=== PATIENT | male | born 1995 | race African-American/Black ===

== ENCOUNTER 2016-12-15 12:51 | Emergency (ER) | payer MEDICAID ==
[~2016-12-15] VITALS: Ht 152.4 cm; Wt 46.0 kg
[2016-12-15] MEDS ORDERED: NAPR220C15 PO (13:02)
[2016-12-15 19:33] VITALS: BP 128/79
== END 2016-12-15 19:37 | disposition home or self-care (01) ==
LOC: ER 12:51
DX: H92.03 Otalgia, bilateral (principal); R51 Headache; F90.9 Attention-deficit hyperactivity disorder, unspecified type; F70 Mild intellectual disabilities
CPT/HCPCS: 99283

== ENCOUNTER 2018-09-19 10:31 | Emergency (ER) | payer MEDICAID ==
[~2018-09-19] VITALS: Ht 157.5 cm; Wt 50.0 kg
[~2018-09-19 10:31] MED LIST: NAPR220C15 PO
[2018-09-19 13:30] VITALS: BP 117/79
== END 2018-09-19 13:51 | disposition home or self-care (01) ==
LOC: ER 10:48
DX: F78 Other intellectual disabilities (principal); F90.9 Attention-deficit hyperactivity disorder, unspecified type; Z98.890 Other specified postprocedural states
CPT/HCPCS: 99284; Z7610

== ENCOUNTER 2019-03-15 13:48 | Inpatient (IN) | payer MEDICAID ==
[~2019-03-15] VITALS: Ht 160 cm; Wt 51.7 kg
[~2019-03-15 13:48] MED LIST changes: +ACETAMINOPHEN 325MG TABLET ONE
[2019-03-15] MEDS: KETOROLAC 30MG/ML VIAL IV STA ×2 (14:26→15:27)
[2019-03-15] MEDS ORDERED: SODIUM CHLORIDE 0.9% 1000ML BAG (SEPSIS BOLUS) IV ONE (14:30)
[2019-03-15] MEDS ORDERED: LORAZEPAM 2MG/ML CPJ IV ONE (14:30)
[2019-03-15 15:49] LABS: HEMATOCRIT. 45.6 % (42.0-52.0); HEMOGLOBIN. 15.5 g/dL (14.0-18.0); MEAN CORPUSCULAR HEMOGLOBIN 29.8 pg (28.0-32.0); MEAN CORPUSCULAR VOLUME 87.8 fL (80.0-94.0); MEAN PLATELET VOLUME 7.9 fl (7.4-10.4); PLATELET 212 x1000/uL (130-400); RED CELL DISTRIBUTION WIDTH 12.3 % (11.6-14.6)
[2019-03-15 15:52] LABS: PROTHROMBIN TIME 10.7 sec (9.6-11.0)
[2019-03-15 15:53] LABS: CHLORIDE 105 mEq/L (98-107)
[2019-03-15] MEDS ORDERED: POTASSIUM CHLORIDE 20MEQ TABLET SR PO ONE (17:30)
[2019-03-15 17:55] LABS: CLARITY URINE CLEAR (CLEAR); COLOR URINE YELLOW (YELLOW); KETONES URINE NEGATIVE (NEGATIVE); LEUKOCYTE ESTERASE URINE NEGATIVE (NEGATIVE); NITRITE URINE NEGATIVE (NEGATIVE); OCCULT BLOOD URINE NEGATIVE (NEGATIVE); PH URINE 7.5 (4.5-8.0); PROTEIN URINE NEGATIVE (NEGATIVE); SPECIFIC GRAVITY URINE 1.008 (1.005-1.030)
[2019-03-15] MEDS ORDERED: VANCOMYCIN 1 G PREMIX 200 ML IV SCH (18:15)
[2019-03-15] MEDS ORDERED: OSELTAMIVIR 75MG CAPSULE PO ONE (18:15)
[2019-03-15] MEDS ORDERED: PIPERACILLIN/TAZ 3.375G PREMIX 50 ML IV ONE (18:15)
[2019-03-15 20:35] VITALS: BP 107/64
[2019-03-15 20:57] LABS: PLATELET ESTIMATE NORMAL
[2019-03-15] MEDS: SODIUM CHLORIDE 0.9% 1,000 ML IV SCH (22:30)
[2019-03-15] MEDS: TRAZODONE HCL 50MG TABLET PO SCH (22:30)
[2019-03-16] VITALS: BP 122/65
[2019-03-16] MEDS ORDERED: MORPHINE SULFATE 2 MG/ML CPJ (NOT FOR IM USE) IV PRN (00:15)
[2019-03-16] MEDS: HYDROCODONE/ACETAMINOPHEN 5/325MG TABLET PO PRN ×2 (00:33→12:59)
[2019-03-16] MEDS: PIPERACILLIN/TAZOBACTAM 3.375 G in DEXT 5% WATER 100 ML IV SCH ×3 (02:30→18:01)
[2019-03-16] MEDS ORDERED: TRAZ-251 PO (03:13)
[2019-03-16 04:00] VITALS: BP 104/56
[2019-03-16 07:00] LABS: BASOPHILS % 0.1 % (0.0-2.0); EOSINOPHILS % 0.1 % (0.0-5.0); HEMATOCRIT. 38.2 % (42.0-52.0); HEMOGLOBIN. 13.2 g/dL (14.0-18.0); LYMPHOCYTES % 16.4 % (20.0-50.0); MEAN CORPUSCULAR HEMOGLOBIN 30.5 pg (28.0-32.0); MEAN CORPUSCULAR VOLUME 88.4 fL (80.0-94.0); MEAN PLATELET VOLUME 7.8 fl (7.4-10.4); MONOCYTES % 12.7 % (2.0-8.0); NEUTROPHILS % 70.7 % (40.0-76.0); PLATELET 159 x1000/uL (130-400); RED BLOOD CELL COUNT 4.32 mill/uL (4.7-6.1); RED CELL DISTRIBUTION WIDTH 12.2 % (11.6-14.6)
[2019-03-16 07:17] LABS: CHLORIDE 110 mEq/L (98-107)
[2019-03-16] MEDS: SODIUM CHLORIDE 0.9% 1,000 ML IV SCH ×2 (07:30→16:40)
[2019-03-16 08:00] VITALS: BP 109/65
[2019-03-16] MEDS: ENOXAPARIN 40MG/0.4ML SYR SUBCUT SCH (08:25)
[2019-03-16] MEDS ORDERED: POTASSIUM CHLORIDE 20MEQ TABLET SR PO SCH (09:00)
[2019-03-16 12:00] VITALS: BP 110/76
[2019-03-16] MEDS ORDERED: POTASSIUM CHLORIDE INJ 40 MEQ in DEXT 5% WATER 250 ML IV SCH (14:30)
[2019-03-16 16:00] VITALS: BP 90/57
[2019-03-16] MEDS: GUAIFENESIN/CODEINE 100-10MG/5ML UDC PO PRN (18:14)
[2019-03-16 20:00] VITALS: BP 113/62
[2019-03-16] MEDS: TRAZODONE HCL 50MG TABLET PO SCH (20:14)
[2019-03-16] MEDS: ACETAMINOPHEN 325MG TABLET PO PRN (21:00)
[2019-03-17] VITALS: BP 103/59
[2019-03-17] MEDS: PIPERACILLIN/TAZOBACTAM 3.375 G in DEXT 5% WATER 100 ML IV SCH (03:28)
[2019-03-17 04:00] VITALS: BP 103/62
[2019-03-17] MEDS: ACETAMINOPHEN 325MG TABLET PO PRN ×3 (04:16→20:10)
[2019-03-17] MEDS: SODIUM CHLORIDE 0.9% 1,000 ML IV SCH ×2 (05:56→13:44)
[2019-03-17 08:00] VITALS: BP 104/56
[2019-03-17] MEDS: ENOXAPARIN 40MG/0.4ML SYR SUBCUT SCH (09:00)
[2019-03-17] MEDS: GUAIFENESIN/CODEINE 100-10MG/5ML UDC PO PRN ×2 (10:08→18:51)
[2019-03-17 16:00] VITALS: BP 106/68
[2019-03-17] MEDS ORDERED: LORAZEPAM 1MG TABLET PO SCH (16:20)
[2019-03-17 20:00] VITALS: BP 113/67
[2019-03-17] MEDS: TRAZODONE HCL 50MG TABLET PO SCH (20:10)
[2019-03-18] VITALS: BP 136/81
[2019-03-18 00:30] LABS: CHLORIDE 109 mEq/L (98-107)
[2019-03-18] MEDS: GUAIFENESIN/CODEINE 100-10MG/5ML UDC PO PRN ×2 (01:45→11:46)
[2019-03-18] MEDS: SODIUM CHLORIDE 0.9% 1,000 ML IV SCH ×2 (01:45→09:30)
[2019-03-18 04:00] VITALS: BP 114/60
[2019-03-18] MEDS: ACETAMINOPHEN 325MG TABLET PO PRN ×2 (05:08→12:40)
[2019-03-18 08:00] VITALS: BP 113/62
[2019-03-18] MEDS: ENOXAPARIN 40MG/0.4ML SYR SUBCUT SCH (09:00)
[2019-03-18] MEDS: LORATADINE 10MG TABLET PO SCH (11:46)
[2019-03-18 12:00] VITALS: BP 115/67
[2019-03-18] MEDS ORDERED: IBUPROFEN 800MG TABLET PO NR (15:00)
[2019-03-18 16:00] VITALS: BP 112/61
[2019-03-18] MEDS ORDERED: LORAZEPAM 2MG/ML CPJ IV NR (17:15)
[2019-03-18 18:36] LABS: BASOPHILS % 0.6 % (0.0-2.0); EOSINOPHILS % 0.1 % (0.0-5.0); HEMATOCRIT. 41.4 % (42.0-52.0); HEMOGLOBIN. 14.3 g/dL (14.0-18.0); LYMPHOCYTES % 21.2 % (20.0-50.0); MEAN CORPUSCULAR VOLUME 87.1 fL (80.0-94.0); MEAN PLATELET VOLUME 7.9 fl (7.4-10.4); MONOCYTES % 9.3 % (2.0-8.0); NEUTROPHILS % 68.8 % (40.0-76.0); PLATELET 162 x1000/uL (130-400); RED BLOOD CELL COUNT 4.75 mill/uL (4.7-6.1); RED CELL DISTRIBUTION WIDTH 12.4 % (11.6-14.6)
[2019-03-18 20:00] VITALS: BP 122/76
[2019-03-18] MEDS: TRAZODONE HCL 50MG TABLET PO SCH (20:57)
[2019-03-19] VITALS: BP 124/77
[2019-03-19] MEDS: GUAIFENESIN/CODEINE 200-20MG/10ML UDC PO PRN ×2 (00:28→11:28)
[2019-03-19] MEDS: ACETAMINOPHEN 325MG TABLET PO PRN ×2 (03:43→12:19)
[2019-03-19 04:00] VITALS: BP 108/78
[2019-03-19 08:00] VITALS: BP 117/72
[2019-03-19] MEDS: LORATADINE 10MG TABLET PO SCH (08:29)
[2019-03-19] MEDS: ENOXAPARIN 40MG/0.4ML SYR SUBCUT SCH (08:30)
[2019-03-19 12:00] VITALS: BP 113/69
[2019-03-19 16:00] VITALS: BP 104/59
[2019-03-19] MEDS ORDERED: IBUPROFEN 800MG TABLET PO PRN (16:15)
[2019-03-19 20:00] VITALS: BP 120/74
[2019-03-20] VITALS: BP 111/69
[2019-03-20 04:00] VITALS: BP 106/77
[2019-03-20] MEDS: TRAZODONE HCL 50MG TABLET PO SCH (04:20)
[2019-03-20 07:07] LABS: HEMATOCRIT. 40.8 % (42.0-52.0); HEMOGLOBIN. 14.1 g/dL (14.0-18.0); MEAN CORPUSCULAR HEMOGLOBIN 30.1 pg (28.0-32.0); MEAN CORPUSCULAR VOLUME 87.3 fL (80.0-94.0); MEAN PLATELET VOLUME 7.3 fl (7.4-10.4); PLATELET 154 x1000/uL (130-400); RED BLOOD CELL COUNT 4.67 mill/uL (4.7-6.1); RED CELL DISTRIBUTION WIDTH 12.2 % (11.6-14.6)
[2019-03-20 07:31] LABS: CHLORIDE 104 mEq/L (98-107)
[2019-03-20 08:00] VITALS: BP 119/82
[2019-03-20] MEDS: ENOXAPARIN 40MG/0.4ML SYR SUBCUT SCH (08:23)
[2019-03-20] MEDS: LORATADINE 10MG TABLET PO SCH (08:23)
[2019-03-20] MEDS ORDERED: LACTULOSE 20G/30ML UDC PO NR (11:15)
[2019-03-20 11:21] LABS: PLATELET ESTIMATE NORMAL
[2019-03-20 12:00] VITALS: BP 112/66
[2019-03-20 14:24] VITALS: BP 112/66
== END 2019-03-20 16:10 | disposition home or self-care (01) | DRG 723 ==
LOC: ER 13:57 → EDBEDREQ 18:08 → EDBEDREQTM 18:08 → ENRESERV 19:35 → 6EST 20:51
PROVIDERS: ADMIT Internal Medicine; ATTEND Internal Medicine
DX: B34.9 Viral infection, unspecified (principal); R65.10 Systemic inflammatory response syndrome (SIRS) of non-infectious origin without acute organ dysfunction; E87.6 Hypokalemia; F70 Mild intellectual disabilities; F90.9 Attention-deficit hyperactivity disorder, unspecified type; R62.50 Unspecified lack of expected normal physiological development in childhood; Z82.5 Family history of asthma and other chronic lower respiratory diseases; Z79.899 Other long term (current) drug therapy
CPT/HCPCS: 36415; 70486; 71045; 71250; 74176; 80048; 80053; 81003; 83605; 83880; 84145; 84484; 85025; 85651; 86140; 87070; 87430; 87804; 93005; 96361; 96365; 96375; 99285; J1650; J1885; J2060; J2543; J3370; J3480; J7030; J7060

== ENCOUNTER 2022-07-09 20:59 | Emergency (ER) | payer MEDICAID ==
[~2022-07-09] VITALS: Ht 162.6 cm; Wt 53.0 kg
[~2022-07-09 20:59] MED LIST changes: -ACETAMINOPHEN 325MG TABLET ONE; +TRAZ-251 PO
[2022-07-10 03:20] VITALS: BP 141/82
== END 2022-07-10 03:22 | disposition home or self-care (01) ==
LOC: ER 20:59
DX: S09.90XA Unspecified injury of head, initial encounter (principal); R42 Dizziness and giddiness; R55 Syncope and collapse; W19.XXXA Unspecified fall, initial encounter; Y93.89 Activity, other specified; Y92.89 Other specified places as the place of occurrence of the external cause; Y99.8 Other external cause status
CPT/HCPCS: 93005; 99284

== ENCOUNTER 2022-11-26 21:34 | Emergency (ER) | payer MEDICAID ==
[~2022-11-26] VITALS: Ht 162.6 cm; Wt 54.7 kg
[2022-11-26 21:39] VITALS: TEMP 97.7; O2SAT 98
[2022-11-26] MEDS ORDERED: IBUP-2028 MT ×3 (21:53→21:56)
[2022-11-26] MEDS ORDERED: IBUPROFEN 600MG TABLET PO ONE (22:00)
[2022-11-26 22:07] VITALS: BP 93/56; PULSE 64; RESP 14
== END 2022-11-26 22:19 | disposition home or self-care (01) ==
LOC: ER 21:34
DX: R51.9 Headache, unspecified (principal); R11.2 Nausea with vomiting, unspecified; J45.909 Unspecified asthma, uncomplicated
CPT/HCPCS: 99282

== ENCOUNTER 2023-02-04 14:39 | Emergency (ER) | payer MEDICAID ==
[~2023-02-04] VITALS: Ht 172.7 cm; Wt 61.0 kg
[~2023-02-04 14:39] MED LIST changes: +IBUP-2028 MT
[2023-02-04 14:43] VITALS: BP 130/73; PULSE 70; RESP 18; TEMP 98.1; O2SAT 98
[2023-02-04] MEDS ORDERED: TOPUD MT (19:24)
[2023-02-04] MEDS ORDERED: FLUT9.9S BOTHNSTRLS (19:24)
[2023-02-04] MEDS ORDERED: CLAR10 MT (19:24)
== END 2023-02-04 19:51 | disposition home or self-care (01) ==
LOC: ER 14:39
DX: R51.9 Headache, unspecified (principal); Z79.899 Other long term (current) drug therapy
CPT/HCPCS: 99281; 99283

== ENCOUNTER 2024-10-09 18:08 | Emergency (ER) | payer MEDICAID ==
[~2024-10-09] VITALS: Ht 165.1 cm; Wt 55.0 kg
[~2024-10-09 18:08] MED LIST changes: +CLAR10 MT; +FLUT9.9S BOTHNSTRLS; +TOPUD MT
[2024-10-09 18:11] VITALS: O2SAT 98
[2024-10-09 18:15] VITALS: BP 117/77; PULSE 82; RESP 16; TEMP 36.9; O2SAT 99
[2024-10-09] MEDS ORDERED: CEPH500C2 MT (19:28)
[2024-10-09] MEDS ORDERED: NAPR-1494 MT (19:28)
[2024-10-09] MEDS ORDERED: SULF1TAB48 MT (19:28)
[2024-10-09] MEDS ORDERED: LIDOCAINE HCL 1% 20ML VIAL INFIL SCH (19:30)
[2024-10-09] MEDS: CEFTRIAXONE SODIUM 1G VIAL IM SCH (19:30)
== END 2024-10-09 20:56 | disposition home or self-care (01) ==
LOC: ER 18:08
DX: K13.0 Diseases of lips (principal); Z79.899 Other long term (current) drug therapy
CPT/HCPCS: 99283; J0696

== ENCOUNTER 2024-10-11 17:44 | Emergency (ER) | payer MEDICAID ==
[~2024-10-11] VITALS: Ht 167.6 cm; Wt 58.9 kg
[~2024-10-11 17:44] MED LIST changes: +CEPH500C2 MT; +NAPR-1494 MT; +SULF1TAB48 MT
[2024-10-11 18:01] VITALS: O2SAT 99
[2024-10-11 21:19] VITALS: BP 116/67; PULSE 72; RESP 14; TEMP 36.7; O2SAT 99
== END 2024-10-11 21:21 | disposition home or self-care (01) ==
LOC: ER 17:44
DX: K13.0 Diseases of lips (principal); F84.0 Autistic disorder; Z79.899 Other long term (current) drug therapy
CPT/HCPCS: 99282